=== PATIENT | female | born 1995 | race American Indian/Alaskan Native ===

== ENCOUNTER 2019-09-10 20:19 | Emergency (ER) | payer OTHER ==
--- NOTE | 2019-09-10 21:20 | Emergency Department Report ---
ED Alcohol HPI - General Chief Complaint: Alcohol Stated Complaint: ETOH/LIGHT HEADED Time Seen by Provider: 09/10/19 20:43 Source: patient, EMS Mode of arrival: Wheelchair Limitations: No Limitations - History of Present Illness Initial Comments: 24-year-old female brought in by EMS with alteration in mental status. Patient is at a cookout and drank a half a cup of alcohol and smoke marijuana. As per triage patient complained of a hard beating fast and EMS reported hallucinations. She tells me that she has sternal chest wall pain is worse with palpation mild shortness of breath. Patient is drowys but arousable by voice and is oriented to self, year, and knows she is in the hospital. Patient is unclear as to why she is in the hospital and regrets not eating her baked beans prior to coming to the ED. - Related Data Allergies Allergy/AdvReac Type Severity Reaction Status Date / Time No Known Allergies Allergy Verified 09/10/19 21:02 ED Review of Systems ROS: Stated complaint: ETOH/LIGHT HEADED Other details as noted in HPI Comment: All other systems reviewed and negative ED Past Medical Hx - Past Medical History Previous Medical History?: No - Surgical History Past Surgical History?: Yes Additional Surgical History: gastric sleeve - Social History Smoking Status: Never Smoker Substance Use Type: Alcohol, Marijuana ED Physical Exam - General Limitations: No Limitations - Other Other exam information: General: No acute distress Head: Atraumatic Eyes: normal appearance, pupils equal reactive to light ENT: Moist mucous membranes Neck: Normal appearance, no midline tenderness Chest: Clear to auscultation bilaterally CV: Regular rate and rhythm Abdomen: Soft, normal bowel sounds, nontender, nondistended, no rebound or guarding Back: Normal inspection Extremity: Normal inspection, full range of motion Neuro: Drowsy but arousable to voice, oriented x3, no facial asymmetry, speech clear, no gross motor sensory deficit Psych: Appropriate behavior Skin: No rash ED Course Vital Signs 09/10/19 09/10/19 09/10/19 20:48 20:57 21:00 Temperature 98.0 F Pulse Rate 81 77 73 Respiratory 16 18 13 Rate Blood Pressure 107/59 127/79 O2 Sat by Pulse 100 100 100 Oximetry 09/10/19 09/10/19 09/10/19 21:15 21:30 21:45 Temperature Pulse Rate 89 107 H 89 Respiratory 15 19 15 Rate Blood Pressure 115/67 115/67 103/50 O2 Sat by Pulse 98 100 99 Oximetry 09/10/19 09/10/19 09/10/19 22:00 22:15 22:30 Temperature Pulse Rate 85 84 85 Respiratory 15 15 16 Rate Blood Pressure 103/50 103/56 103/56 O2 Sat by Pulse 100 100 100 Oximetry 09/10/19 09/10/19 09/10/19 22:45 23:02 23:15 Temperature Pulse Rate 81 83 74 Respiratory 17 16 16 Rate Blood Pressure 111/63 108/53 110/68 O2 Sat by Pulse 100 100 100 Oximetry 09/10/19 09/10/19 09/11/19 23:31 23:45 00:00 Temperature Pulse Rate 79 69 69 Respiratory 18 16 15 Rate Blood Pressure 113/61 112/66 111/64 O2 Sat by Pulse 100 100 100 Oximetry 09/11/19 09/11/19 09/11/19 00:11 00:15 00:25 Temperature 98 F Pulse Rate 64 65 Respiratory 14 14 Rate Blood Pressure 111/64 115/64 O2 Sat by Pulse 100 99 Oximetry 09/11/19 09/11/19 09/11/19 00:30 00:45 01:00 Temperature Pulse Rate 71 63 60 Respiratory 18 14 15 Rate Blood Pressure 115/68 111/62 109/61 O2 Sat by Pulse 100 100 100 Oximetry 09/11/19 09/11/19 09/11/19 01:15 01:30 01:45 Temperature Pulse Rate 62 61 64 Respiratory 15 17 15 Rate Blood Pressure 111/60 116/63 113/66 O2 Sat by Pulse 99 100 100 Oximetry 09/11/19 09/11/19 09/11/19 02:00 02:15 02:30 Temperature Pulse Rate 63 58 L 60 Respiratory 17 14 14 Rate Blood Pressure 112/64 112/62 113/65 O2 Sat by Pulse 100 100 100 Oximetry 09/11/19 09/11/19 09/11/19 02:45 03:00 03:15 Temperature Pulse Rate 61 59 L 59 L Respiratory 15 14 14 Rate Blood Pressure 113/65 114/62 117/68 O2 Sat by Pulse 100 100 100 Oximetry 09/11/19 09/11/19 09/11/19 03:30 03:45 04:00 Temperature Pulse Rate 57 L 56 L 57 L Respiratory 13 14 14 Rate Blood Pressure 114/64 116/60 108/54 O2 Sat by Pulse 100 100 100 Oximetry 09/11/19 09/11/19 09/11/19 04:13 04:15 04:37 Temperature 98.0 F Pulse Rate 59 L 65 Respiratory 13 17 Rate Blood Pressure 115/64 115/64 O2 Sat by Pulse 100 100 Oximetry 09/11/19 09/11/19 09/11/19 04:45 05:00 05:15 Temperature Pulse Rate 60 66 63 Respiratory 16 20 11 L Rate Blood Pressure 117/69 127/71 126/75 O2 Sat by Pulse 100 100 100 Oximetry 09/11/19 09/11/19 09/11/19 05:30 05:45 06:00 Temperature Pulse Rate 64 65 65 Respiratory 8 L 20 22 Rate Blood Pressure 128/74 125/75 128/77 O2 Sat by Pulse 100 100 100 Oximetry 09/11/19 06:15 Temperature Pulse Rate 63 Respiratory 19 Rate Blood Pressure 122/75 O2 Sat by Pulse 100 Oximetry - Reevaluation(s) Reevaluation #1: 09/11/19 01:43 Patient reassessed. Sleeping but easily arousable. I informed her that her alcohol level was not that high and I was considering scanning her head. She states she is feeling somewhat better and feels okay. She will be allowed to continue sleeping and will be reassessed. ED Medical Decision Making - Lab Data Result diagrams: 09/10/19 21:28 09/10/19 21:28 Lab Results 09/10/19 09/10/19 09/10/19 Range/Units 21:28 21:28 21:28 WBC 5.9 (4.5-11.0) K/mm3 RBC 3.46 L (3.65-5.03) M/mm3 Hgb 9.2 L (10.1-14.3) gm/dl Hct 28.0 L (30.3-42.9) % MCV 81 (79-97) fl MCH 27 L (28-32) pg MCHC 33 (30-34) % RDW 16.0 H (13.2-15.2) % Plt Count 235 (140-440) K/mm3 Lymph % (Auto) 11.9 L (13.4-35.0) % Cedar % (Auto) 6.5 (0.0-7.3) % Eos % (Auto) 0.1 (0.0-4.3) % Baso % (Auto) 0.7 (0.0-1.8) % Lymph # 0.7 L (1.2-5.4) K/mm3 Cedar # 0.4 (0.0-0.8) K/mm3 Eos # 0.0 (0.0-0.4) K/mm3 Baso # 0.0 (0.0-0.1) K/mm3 Seg Neutrophils % 80.8 H (40.0-70.0) % Seg Neutrophils # 4.8 (1.8-7.7) K/mm3 Sodium 137 (137-145) mmol/L Potassium 4.2 (3.6-5.0) mmol/L Chloride 101.2 (98-107) mmol/L Carbon Dioxide 24 (22-30) mmol/L Anion Gap 16 mmol/L BUN 16 (7-17) mg/dL Creatinine 0.7 (0.7-1.2) mg/dL Estimated GFR > 60 ml/min BUN/Creatinine Ratio 23 % Glucose 114 H (65-100) mg/dL Calcium 9.3 (8.4-10.2) mg/dL Magnesium 2.00 (1.7-2.3) mg/dL Total Bilirubin 0.20 (0.1-1.2) mg/dL AST 16 (5-40) units/L ALT 11 (7-56) units/L Alkaline Phosphatase 45 (35-129) units/L Total Protein 7.9 (6.3-8.2) g/dL Albumin 4.2 (3.9-5) g/dL Albumin/Globulin Ratio 1.1 % HCG, Qual (Negative) Salicylates < 0.3 L (2.8-20.0) mg/dL Urine Opiates Screen Urine Methadone Screen Acetaminophen (10.0-30.0) ug/mL Ur Barbiturates Screen Ur Phencyclidine Scrn Ur Amphetamines Screen U Benzodiazepines Scrn Urine Cocaine Screen U Marijuana (THC) Screen Drugs of Abuse Note Plasma/Serum Alcohol (0-0.07) % 09/10/19 09/10/19 09/10/19 Range/Units 21:28 21:28 21:28 WBC (4.5-11.0) K/mm3 RBC (3.65-5.03) M/mm3 Hgb (10.1-14.3) gm/dl Hct (30.3-42.9) % MCV (79-97) fl MCH (28-32) pg MCHC (30-34) % RDW (13.2-15.2) % Plt Count (140-440) K/mm3 Lymph % (Auto) (13.4-35.0) % Cedar % (Auto) (0.0-7.3) % Eos % (Auto) (0.0-4.3) % Baso % (Auto) (0.0-1.8) % Lymph # (1.2-5.4) K/mm3 Cedar # (0.0-0.8) K/mm3 Eos # (0.0-0.4) K/mm3 Baso # (0.0-0.1) K/mm3 Seg Neutrophils % (40.0-70.0) % Seg Neutrophils # (1.8-7.7) K/mm3 Sodium (137-145) mmol/L Potassium (3.6-5.0) mmol/L Chloride (98-107) mmol/L Carbon Dioxide (22-30) mmol/L Anion Gap mmol/L BUN (7-17) mg/dL Creatinine (0.7-1.2) mg/dL Estimated GFR ml/min BUN/Creatinine Ratio % Glucose (65-100) mg/dL Calcium (8.4-10.2) mg/dL Magnesium (1.7-2.3) mg/dL Total Bilirubin (0.1-1.2) mg/dL AST (5-40) units/L ALT (7-56) units/L Alkaline Phosphatase (35-129) units/L Total Protein (6.3-8.2) g/dL Albumin (3.9-5) g/dL Albumin/Globulin Ratio % HCG, Qual Negative (Negative) Salicylates (2.8-20.0) mg/dL Urine Opiates Screen Urine Methadone Screen Acetaminophen < 5.0 L (10.0-30.0) ug/mL Ur Barbiturates Screen Ur Phencyclidine Scrn Ur Amphetamines Screen U Benzodiazepines Scrn Urine Cocaine Screen U Marijuana (THC) Screen Drugs of Abuse Note Plasma/Serum Alcohol < 0.01 (0-0.07) % 09/10/19 Range/Units 23:03 WBC (4.5-11.0) K/mm3 RBC (3.65-5.03) M/mm3 Hgb (10.1-14.3) gm/dl Hct (30.3-42.9) % MCV (79-97) fl MCH (28-32) pg MCHC (30-34) % RDW (13.2-15.2) % Plt Count (140-440) K/mm3 Lymph % (Auto) (13.4-35.0) % Cedar % (Auto) (0.0-7.3) % Eos % (Auto) (0.0-4.3) % Baso % (Auto) (0.0-1.8) % Lymph # (1.2-5.4) K/mm3 Cedar # (0.0-0.8) K/mm3 Eos # (0.0-0.4) K/mm3 Baso # (0.0-0.1) K/mm3 Seg Neutrophils % (40.0-70.0) % Seg Neutrophils # (1.8-7.7) K/mm3 Sodium (137-145) mmol/L Potassium (3.6-5.0) mmol/L Chloride (98-107) mmol/L Carbon Dioxide (22-30) mmol/L Anion Gap mmol/L BUN (7-17) mg/dL Creatinine (0.7-1.2) mg/dL Estimated GFR ml/min BUN/Creatinine Ratio % Glucose (65-100) mg/dL Calcium (8.4-10.2) mg/dL Magnesium (1.7-2.3) mg/dL Total Bilirubin (0.1-1.2) mg/dL AST (5-40) units/L ALT (7-56) units/L Alkaline Phosphatase (35-129) units/L Total Protein (6.3-8.2) g/dL Albumin (3.9-5) g/dL Albumin/Globulin Ratio % HCG, Qual (Negative) Salicylates (2.8-20.0) mg/dL Urine Opiates Screen Presumptive negative Urine Methadone Screen Presumptive negative Acetaminophen (10.0-30.0) ug/mL Ur Barbiturates Screen Presumptive negative Ur Phencyclidine Scrn Presumptive negative Ur Amphetamines Screen Presumptive negative U Benzodiazepines Scrn Presumptive negative Urine Cocaine Screen Presumptive negative U Marijuana (THC) Screen Presumptive positive Drugs of Abuse Note Disclamer Plasma/Serum Alcohol (0-0.07) % - EKG Data -: EKG Interpreted by Me EKG shows normal: sinus rhythm, ST-T waves (no stemi) Rate: normal - Radiology Data Radiology results: report reviewed CT HEAD WITHOUT CONTRAST INDICATION: ams drug use TECHNIQUE: Axial slices were obtained through the head. Coronal and sagittal reformatted images were obtained. COMPARISON: None available FINDINGS: There is no intracranial hemor rhage or extra-axial fluid collection. Ventricles, basilar cisterns, and sulci appear within normal limits for age. There is no mass lesion or midline shift. No acute territorial infarct is identified. There is a small focus of calcification in the right basal ganglia. Bone windows demonstrate no acute osseous abnormality. Paranasal sinuses and mastoid air cells appear clear. TECHNIQUE: All CT scans at this facility use dose modulation, iterative reconstruction, automated exposure control, weight based dosing, when appropriate, to reduce radiation dose to as low as reasonably achievable. IMPRE SSION: 1. No acute intracranial abnormality. - Medical Decision Making Patient observed in the ED for an extended period and despite trying to get her up to walk she remains drowsy therefore CT head performed. CT head does not show any acute abnormalities. UDS positive for marijuana. Patient symptoms likely secondary to drug and alcohol use prior to arrival. Patient slept throughout the night. patient will be prepped for discharge in a.m. - Differential Diagnosis Drug/alcohol intoxication, encephalopathy Critical Care Time: No Critical care attestation.: If time is entered above; I have spent that time in minutes in the direct care of this critically ill patient, excluding procedure time. ED Disposition Clinical Impression: Marijuana use, Alcohol use Disposition: DC-01 TO HOME OR SELFCARE Is pt being admited?: No Does the pt Need Aspirin: No Condition: Stable Instructions: Alcohol Intoxication (ED), Cannabis Abuse (ED) Additional Instructions: Follow-up with your doctor or doctor/clinic provided. Return if symptoms worsen as indicated by your discharge instructions. Referrals: PRIMARY MD SONYA [Primary Care Provider] - 3-5 Days STAS PÉREZ MD [Staff Physician] - 3-5 Days [facility] [Provider Group] - 3-5 Days Time of Disposition: 06:00
[2019-09-10 21:42] LABS: Basophils % (Auto) 0.7 % (0.0-1.8); Eosinophils % (Auto) 0.1 % (0.0-4.3); Hemoglobin 9.2 gm/dl (10.1-14.3); Lymphocytes # (Auto) 0.7 K/mm3 (1.2-5.4); Lymphocytes % (Auto) 11.9 % (13.4-35.0); Mean Corpuscular HGB Conc 33 % (30-34); Mean Corpuscular Volume 81 fl (79-97); Monocytes # (Auto) 0.4 K/mm3 (0.0-0.8); Monocytes % (Auto) 6.5 % (0.0-7.3); Platelet Count 235 K/mm3 (140-440); Red Blood Count 3.46 M/mm3 (3.65-5.03)
[2019-09-10 22:05] LABS: Alanine Aminotransferase 11 units/L (7-56); Albumin 4.2 g/dL (3.9-5); BUN/Creatinine Ratio 23; Blood Urea Nitrogen 16 mg/dL (7-17); Calcium 9.3 mg/dL (8.4-10.2); Hemolysis Index 3
[2019-09-10 23:18] LABS: Amphetamine Screen,Urine PRESUMPTIVE NEGATIVE; Benzodiazepines Screen,Urine PRESUMPTIVE NEGATIVE; Cocaine Screen,Urine PRESUMPTIVE NEGATIVE; Methadone Screen,Urine PRESUMPTIVE NEGATIVE; Opiate Screen,Urine PRESUMPTIVE NEGATIVE
[2019-09-10] MEDS ORDERED: SODIUM CHLORIDE 0.9% 1000 ML 1,000 ML IV ONE (23:19)
[2019-09-10 23:29] LABS: Cannabinoid Screen,Urine PRESUMPTIVE POSITIVE
--- NOTE | 2019-09-11 05:02 | Cat Scan Report ---
CT HEAD WITHOUT CONTRAST INDICATION: ams drug use TECHNIQUE: Axial slices were obtained through the head. Coronal and sagittal reformatted images were obtained. COMPARISON: None available FINDINGS: There is no intracranial hemorrhage or extra-axial fluid collection. Ventricles, basilar cisterns, an d sulci appear within normal limits for age. There is no mass lesion or midline shift. No acute camden torial infarct is identified. There is a small focus of calcification in the right basal ganglia. Bone windows demonstrate no acute osseous abnormality. Paranasal sinuses and mastoid air cells appear clear. TECHNIQUE: All CT scans at this facility use dose modulation, iterative reconstruction, automated ex posure control, weight based dosing, when appropriate, to reduce radiation dose to as low as reasonab ly achievable. IMPRESSION: 1. No acute intracranial abnormality. Signer Name: Aden Adorno MD Signed: 09/11/2019 4:57 AM Workstation Name: [id number]
[2019-09-11 06:30] VITALS: BP 122/75
== END 2019-09-11 06:43 | disposition home or self-care (01) ==
LOC: ED 20:19
DX: F12.10 Cannabis abuse, uncomplicated (principal); F10.10 Alcohol abuse, uncomplicated
CPT/HCPCS: 36415; 70450; 80053; 80307; 83735; 84703; 85025; 93005; 96360; 99284; J7030; 80320; G0480